=== PATIENT | female | born 1960 | race Caucasian/White ===

== ENCOUNTER → 2024-04-04 10:47 | Outpatient (REF) | payer OTHER, SELFPAY | LOC: RAD 10:47 | PROVIDERS: ATTENDING PHYSICIAN Family Medicine | DX: R05.1 Acute cough (principal) | CPT/HCPCS: 71046 ==

== ENCOUNTER 2024-04-08 15:11 | Inpatient (IN) | payer OTHER, SELFPAY ==
[2024-04-08 12:09] VITALS: BP 147/80
[2024-04-08 12:49] VITALS: BMI 34.7
[2024-04-08 14:05] VITALS: BP 134/73
--- NOTE | 2024-04-08 14:10 | ED.GENMED ---
History of Present Illness
General
Chief Complaint: Pneumonia Symptoms
Time Seen by Provider: 04/08/24 12:18
History of Present Illness
History of Present Illness:
64-year-old female presents emergency department for evaluation of persistent coughing and inability to clear secretions for the past 8 to 9 days. She had a chest x-ray 3 days ago ordered by her primary care physician that showed bilateral
pneumonia. She had been treated initially with Augmentin and prednisone last week and after the chest x-ray findings was started on doxycycline 3 days ago. She reports no symptomatic improvement. Does not have any fevers or chills. Has been
using nebulizers without relief. Prednisone was completed yesterday.
Past History
Past History
ED Past Medical History: Asthma, HTN, Other (Migraine headaches, depression, ADD, hiatal hernia, GERD) and Other (fibroids)
ED Past Surgical History: Other (uerine ablation for fibroids in 2010)
Social History
Tobacco: Non-smoker
Alcohol: None
Drug: None
Personal:
Living: with family
Employment: Not employed
Family History
Family History: Other (n/c)
Review of Systems
Review of Systems
Allergies reviewed?: Yes
All Other Systems: ROS reviewed and negative except as documented in HPI and ROS
Phy Exam
Physical Exam
Physical Exam:
GEN: Well appearing, NAD, WDWN
HEENT: Oral mucosa moist, no scleral icterus
Cardiac: Mildly tachycardic, regular
Lung: No respiratory distress, no tachypnea, lungs clear to auscultation bilaterally
MSK: No gross deformity or injuries
Skin: Good color, no pallor or jaundice, no rashes
Neuro: AO x3, moves all extremities freely
Psych: Calm, cooperative
Course
Orders/Labs/Results
Orders:
Orders
04/08/24 12:48
CR Chest - 2 Views Urgent
Comment:
Reason For Exam: continued cough, known PNA
04/08/24 13:57
CefTRIAXone [Rocephin] 1,000 mg IV NOW STA
Ipratropium/Albuterol Sulfate [Duoneb] 3 ml INH R NOW ONE
04/08/24 14:03
Complete Blood Count/With Diff Urgent
Comprehensive Metabolic Panel Urgent
04/08/24 Dinner
Regular
At Your Request: Full Participation
Does patient need a safe tray?: No
04/08/24 15:02
Admit/Transfer Patient As Directed
Co-Sign Provider:
Level of Care: Inpatient admission
Assign to:: Medical/Surgical
Physician / Group: kyrstal
Diagnosis: pneumonia
Reason for Hospitalization: pneumonia
Expected length of stay greater than two midnights?: Yes
ELOS- Estimated Length of Stay in days: 2
I certify the patient meets the requirements for IP care: Yes
04/08/24 15:03
Code Status As Directed
Resuscitation Status: Full Code
PRN Pain Medication Management As Directed
May give lesser potent ordered pain med per pt: Yes
preference::
Protocol:: Medication orders for pain may be administered in a
manner that supports deferring to patient preference
when the pt is:
- Requesting an ordered lesser potent pain medication.
Least to most potent pain medications are defined
as: acetaminophen < NSAID < tramadol < opioids
(morphine, oxycodone, hydromorphone).
- Requesting a lesser dose of the same medication IF
ORDERED.
- Requesting a less intrusive route of administration
if both routes are prescribed by the provider (PO <
IV).
04/08/24 15:04
Sputum Culture [Respiratory Culture/Gram Stain] Routine
VLADISLAV Source: Sputum
Specimen Description:
04/08/24 15:05
Legionella Urinary Antigen Routine
VLADISLAV Source: Urine
Specimen Description:
Strep pneumoniae Antigen Routine
VLADISLAV Source: Urine
Specimen Description:
04/08/24 15:14
COVID-19 Antigen Urgent
Source: Nasal Swab
Influenza A+B Rapid Molecular Urgent
VLADISLAV Source: Nasal Swab
Specimen Description:
04/08/24 16:46
Acetaminophen [Tylenol] 650 mg PO Q4HPRN PRN
Albuterol Nebs [Ventolin Nebules] 2.5 mg INH R Q6HPRN PRN
Budesonide/Formoterol 80/4.5 [Symbicort 80/4.5 Mcg Inhaler] 1 puff INH R BIDPRN PRN
Polyethylene Glycol Powder [Miralax] 17 grams PO BIDPRN PRN
04/08/24 16:46
Activity As Directed
Activity Level: As Tolerated
Vital Signs As Directed
Frequency: Per unit guidelines
DX Deep Vein Thrombosis Video Routine
04/08/24 18:00
Azithromycin 500 mg/250 ml [Zithromax Infusion] 500 mg in 250 ml IV Q24H
04/08/24 20:00
Guaifenesin [Mucinex] 1,200 mg PO Q12
Heparin 5,000 units SC Q12
04/08/24 22:00
Lisinopril [Zestril] 10 mg PO HS
Pravastatin Sodium [Pravachol] 40 mg PO HS
04/09/24 06:00
Complete Blood Count/With Diff IN AM
Comprehensive Metabolic Panel IN AM
04/09/24 08:00
Cholecalciferol (Vitamin D3) [VITAMIN D3 (cholecalciferol)] 50 mcg PO DAILY
Fluoxetine HCl [Prozac] 40 mg PO DAILY
Lactobac/Bifidobac [Visbiome] 1 cap PO DAILY
Multivitamin [Theragran] 1 tablet PO DAILY
Pantoprazole [Protonix] 40 mg PO DAILY
Venlafaxine Extended Release [Effexor Xr] 150 mg PO DAILY
04/09/24 14:00
CefTRIAXone [Rocephin] 1,000 mg IV Q24H
Abnormal Lab Results
04/08/24
14:03
WBC 18.4 H 10^3/uL
(4.8-10.8)
RBC 4.16 L 10^6/uL
(4.20-5.40)
MCHC 31.4 L g/dL
(33.0-37.0)
Plt Count 505 H 10^3/uL
(130-400)
Abs Immat Gran (auto) 0.9 H 10^3/uL
(0-0.05)
Absolute Neuts (auto) 16.3 H 10^3/uL
(1.4-6.5)
Absolute Lymphs (auto) 0.7 L 10^3/uL
(1.2-3.4)
Immature Gran % 4.7 H %
(0-0.5)
Neutrophils % 88.7 H %
(42.2-75.2)
Lymphocytes % 4.0 L %
(20.5-51.1)
BUN 23 H mg/dl
(7-17)
Glucose 138 H mg/dl
(70-99)
AST 43 H U/L
(14-36)
ALT 73 H U/L
(0-35)
04/08/24 14:03
04/08/24 14:03
Vital Signs
Initial and Last Documented VS:
Initial Vital Signs
Temp Pulse BP Pulse Ox
98.2 F 102 147/80 93
04/08/24 12:09 04/08/24 12:09 04/08/24 12:09 04/08/24 12:09
Last Documented Vital Signs
Temp Pulse Resp BP Pulse Ox
97.8 F 88 18 123/75 93
04/08/24 17:18 04/08/24 17:18 04/08/24 17:18 04/08/24 17:18 04/08/24 17:18
MDM/Problems Addressed
MDM/Problems Addressed:
Patient with failure of outpatient treatment for bilateral pneumonia, she does have significant leukocytosis and evidence of mild progression of infiltrates on chest x-ray. She is also hypoxic particular with exertion. Will admit for IV antibiotics
*Critical Care Note
Total Time (30-74mins, 75-104mins- exclusive of procedures): Not Applicable
ED Attending Note
-
Portions of this chart may have been created with voice recognition software.� Occasional wrong word or��sound alike� substitutions may have occurred due to the inherent limitations of voice recognition software.
Discharge Plan
Departure
Patient Disposition: Admit
Date of Disposition: 04/08/24
Time of Disposition: 14:51
Admit to: Med/Surg
Presentation/result/management discussed w/ accepting MD/DO: Hospitalist
Discharge Problem:
Bilateral pneumonia
Interventions
Interventions:
*Risk Screen - Suicide Last Done: 04/08/24 12:14
*General Assessment Last Done: 04/08/24 12:49
*Neglect/Abuse Screening Last Done: 04/08/24 12:14
ED- Fall Risk Assessment Last Done: 04/08/24 12:49
*ED COVID-19 Vaccine History Last Done: 04/08/24 12:14
*Nursing Disposition Last Done: 04/08/24 16:53
ED- Cardiac Assessment Last Done: 04/08/24 12:49
ED- Pulmonary Assessment Last Done: 04/08/24 12:49
Discharge Date and Time
Discharge Date/Time: 04/08/24 16:54
[2024-04-08] MEDS: DUONEB 3 ML INH (14:11)
[2024-04-08] MEDS: ROCEPHIN 1000 MG IV (14:11)
[2024-04-08 14:19] LABS: % Basophils 0.4 % (0-2); % Eosinophils 0.2 % (0-6); % Immature Granulocytes 4.7 % (0-0.5); % Neutrophils 88.7 % (42.2-75.2); Absolute Basophils 0.1 10^3/uL (0-0.2); Absolute Immature Granulocytes 0.9 10^3/uL (0-0.05); Absolute Lymphocytes 0.7 10^3/uL (1.2-3.4); Absolute Monocytes 0.4 10^3/uL (0.1-0.6); Absolute Neutrophils 16.3 10^3/uL (1.4-6.5); Hematocrit 38.2 % (37.0-47.0); Mean Corp Hgb Conc. 31.4 g/dL (33.0-37.0); Mean Corpuscular Hgb 28.8 pg (27.0-31.0); Mean Corpuscular Volume 91.8 fL (81.0-99.0); Mean Platelet Volume 9.2 fL (7.4-10.4); Nucleated Red Blood Cells % 0 %; Platelet Count 505 10^3/uL (130-400); Red Blood Cell Count 4.16 10^6/uL (4.20-5.40); Red Cell Dist. Width 13.6 % (11.5-14.5); White Blood Cell Count 18.4 10^3/uL (4.8-10.8)
[2024-04-08 14:39] LABS: ALT (SGPT) 73 U/L (0-35); AST (SGOT) 43 U/L (14-36); Albumin 4.1 g/dl (3.5-5.0); Alkaline Phosphatase 98 U/L (38-126); Blood Urea Nitrogen 23 mg/dl (7-17); Calcium 9.8 mg/dl (8.4-10.2); Carbon Dioxide 25 mmol/L (22-30); Chloride 100 mmol/L (98-107); Estimated Creatinine Clearance 91 ml/min; Glucose 138 mg/dl (70-99); Potassium 4.6 mmol/L (3.5-5.1); Sodium 140 mmol/L (135-145); Total Bilirubin 0.2 mg/dl (0.2-1.3); Total Protein 7.1 g/dl (6.3-8.2); eGFR > 60.00
[2024-04-08 15:00] VITALS: BP 123/81
--- NOTE | 2024-04-08 15:06 | HPS.HSE ---
Family Physician
-
Family Physician: Ghada Brown MD
Chief Complaint
-
shortness of breath, cough
History of Present Illness
64-year-old female past medical history of allergy induced asthma, hypertension, migraines, depression, ADD, hiatal hernia, GERD, presenting with persistent cough and inability to clear secretions for the past 8 to 9 days. She had chest x-ray 3
days ago showed bilateral pneumonia. She was initially treated with Augmentin and prednisone last week and after the chest x-ray she was on doxycycline 3 days ago. She reports no improvement. She denies fevers or chills. She has been using
nebulizers without relief. Prednisone was completed yesterday.
She initially had a scratchy throat but denies any fever chills or bodyaches any time. Denies nausea vomiting or diarrhea.
Denies any prior history of smoking. Denies alcohol.
Medical History
Past Medical History
Past Medical History: Reports Other (allergy induced asthma, hypertension, migraines, depression, ADD, hiatal hernia, GERD)
Past Surgical History: Reports None
Social History
Tobacco: Non-smoker
Alcohol: None
Drug: None
Family History
Family History: Not pertinent
Allergies / Home Medications
Allergies reflects when Allergies were last updated in [facility].
Home Medications with original date entered in [facility]
Allergy/Medication List:
Allergies
Allergy/AdvReac Type Severity Reaction Status Date / Time
bee venom protein (honey bee) Allergy Unknown Verified 02/07/22 12:13
fluconazole [From Diflucan] Allergy Unknown Verified 02/07/22 12:13
Home Medications
Bacillus coagulans 250 million cell chewable tablet (Probiotic (B. coagulans)) 1 ea PO DAILY 02/02/18
cholecalciferol (vitamin D3) 50 mcg (2,000 unit) capsule (Vitamin D3) 2,000 unit PO DAILY 02/02/18
fluoxetine 40 mg capsule (Prozac) 40 mg PO BID 02/02/18
lisinopril 10 mg tablet 10 mg PO HS 02/02/18
multivitamin 1 ea PO DAILY 02/02/18
polyethylene glycol 3350 17 gram oral powder packet 17 grams PO BID PRN Reduction Of Transepidermal Water Loss 02/02/18
Protonix 40 mg PO 1XD 04/08/24
Review of Systems
-
History Source: Patient
A 12 point ROS was completed and negative except as noted: Yes
Constitutional: Reports No Symptoms
EENT: Reports No Symptoms
Respiratory: Reports See HPI
Cardiac: Reports No Symptoms
Abdomen/GI: Reports No Symptoms
: Reports No Symptoms
Musculoskeletal: Reports No Symptoms
Skin: Reports No Symptoms
Neurological: Reports No Symptoms
Endocrine: Reports No Symptoms
Hematologic/Lymphatic: Reports No Symptoms
Psych: Reports No Symptoms
Physical Exam
Vital Signs
Vital Signs
Temp Pulse BP Pulse Ox
98.2 F 102 123/81 89
04/08/24 12:09 04/08/24 12:09 04/08/24 15:00 04/08/24 15:00
Physical Exam
General: Well Developed, Well Nourished and No Apparent Distress
HEENT: NormoCephalic, Moist mucous membranes and Atraumatic
Respiratory: Rales (bilaterally, diminished air entry )
Cardiac: S1/S2 and Regular Rhythm; No Murmur or Rub
GI: Soft, Non Tender, Non Distended and Normal Bowel Sounds; No Organomegaly
Rectal: Deferred by Provider
Musculoskeletal: No Clubbing, No Cyanosis and No Edema
Skin: No Rash
Neuro: Nonfocal/grossly intact
Laboratory Results
-
04/08/24 14:03
04/08/24 14:03
Laboratory Results
Total Bilirubin 0.2 mg/dl (0.2-1.3) 04/08/24 14:03
AST 43 U/L (14-36) H 04/08/24 14:03
ALT 73 U/L (0-35) H 04/08/24 14:03
Alkaline Phosphatase 98 U/L (38-126) 04/08/24 14:03
Data Reviewed
-
Lab Data: Labs Reviewed by me
Old Records: Reviewed
Impression/Plan
-
IMPRESSION:
PLAN:
# Sepsis (leukocytosis, tachycardia) mild bilateral pneumonia progressed on the right
-Bilateral crackles, with very diminished air entry bilateral
-Ceftriaxone/azithromycin
-Start Mucinex
-Check sputum culture when able, check strep and Legionella
-Check COVID and influenza
-Doubt she will benefit from further steroids at this time
# Mild transaminitis
-Monitor, outpatient follow-up
History of allergic asthma
Essential hypertension
-Continue lisinopril
Migraines
Anxiety/depression
-Continue fluoxetine
ADD
GERD/hiatal hernia
-Continue Protonix
Full code
DVT prophylaxis�heparin
Regular diet
[2024-04-08 16:00] VITALS: BP 122/71
[2024-04-08 16:14] LABS: COVID-19 Antigen Negative (Negative)
[2024-04-08 17:18] VITALS: BP 123/75; BMI 34.4
[2024-04-08] MEDS: ZITHROMAX INFUSION 250 IV (17:47)
[2024-04-08] MEDS: MUCINEX 1200 MG PO (20:20)
[2024-04-08] MEDS: HEPARIN 5000 UNITS SC (20:20)
[2024-04-08] MEDS: PRAVACHOL 40 MG PO (21:34)
[2024-04-08] MEDS: ZESTRIL 10 MG PO (21:34)
[2024-04-08 23:11] VITALS: BP 129/78
[2024-04-09] MEDS: VENTOLIN NEBULES 2.5 MG INH (02:35)
[2024-04-09 06:20] LABS: ALT (SGPT) 62 U/L (0-35); AST (SGOT) 36 U/L (14-36); Albumin 3.6 g/dl (3.5-5.0); Alkaline Phosphatase 81 U/L (38-126); Blood Urea Nitrogen 19 mg/dl (7-17); Calcium 9.1 mg/dl (8.4-10.2); Carbon Dioxide 28 mmol/L (22-30); Chloride 103 mmol/L (98-107); Estimated Creatinine Clearance 91 ml/min; Glucose 93 mg/dl (70-99); Potassium 4.6 mmol/L (3.5-5.1); Sodium 144 mmol/L (135-145); Total Bilirubin 0.2 mg/dl (0.2-1.3); Total Protein 6.5 g/dl (6.3-8.2); eGFR > 60.00
[2024-04-09 06:36] LABS: Band Neutrophils 4 % (0-3); Lymphocytes 16 % (20-51); Metamyelocytes 2 % (-); Monocytes 5 % (2-9); Myelocytes 1 % (-); Segmented Neutrophils 72 % (42-75)
[2024-04-09 06:37] LABS: Absolute Neutrophils -Man Diff 9.9 10^3/uL (1.4-6.5); Hematocrit 35.8 % (37.0-47.0); Mean Corp Hgb Conc. 30.7 g/dL (33.0-37.0); Mean Corpuscular Hgb 28.6 pg (27.0-31.0); Mean Corpuscular Volume 93.2 fL (81.0-99.0); Mean Platelet Volume 9.3 fL (7.4-10.4); Platelet Count 478 10^3/uL (130-400); Red Blood Cell Count 3.84 10^6/uL (4.20-5.40); Red Cell Dist. Width 13.7 % (11.5-14.5); White Blood Cell Count 13.1 10^3/uL (4.8-10.8)
[2024-04-09 06:39] LABS: Anisocytosis 2+; Normal RBC Morphology No; Platelets Checked Yes
[2024-04-09 06:40] LABS: Macrocytosis 1+; Polychromasia Slight; Total Cells Counted 100
[2024-04-09 08:05] VITALS: BP 127/75
[2024-04-09] MEDS: PROTONIX 40 MG PO (08:07)
--- NOTE | 2024-04-09 08:24 | W.PN.HOSP.TC ---
Today's Communication/Plan
-
c/w IV Abs
Consult pulmonary
Order Nebulizer
F/W pulmonary recommendation
Blood culture
c/w PPI
Spirometry
Assessment / Plan
Assessment / Plan
lPhysical Exam
General: Well Developed, Well Nourished and No Apparent Distress
HEENT: Normocephalic, Moist mucous membranes and Atraumatic
Respiratory: Rales (bilaterally, diminished air entry )
Cardiac: S1/S2 and Regular Rhythm; No Murmur or Rub
GI: Soft, Non Tender, Non Distended and Normal Bowel Sounds; No Organomegaly
Rectal: No rectal bleeding
Musculoskeletal: No Clubbing, No Cyanosis and No Edema
Skin: No Rash
Neuro: Nonfocal/grossly intact
Psych: calm, pleasant
# Sepsis (leukocytosis, tachycardia, hypoxia)due to bilateral pneumonia
-Bilateral crackles R>L , with very diminished air entry bilateral. No wheezes heard
- She is feeling better, still cough and need O2. WBC is coming down, afebrile.
- Negative COVID & Flu
-Sent for Legionella
- Order blood culture
-c/w IV Ceftriaxone/azithromycin
- Mucinex
-Check sputum culture when able, check strep and Legionella
- Consult pulmonary
# Hypoxia only
wean off nasal O2
# Mild transaminitis, reactive to infection.
No abdominal pain, no nausea
Liver enzymes are coming down
# History of allergic asthma
Uses PRN inhaler once or less / month
She seems to have mild intermittent asthma but recently start on maintenance inhaler( she does not know it)
Will benefit from pulmonary follow up, she reports chronic exertional SOB, will need PFT. Consult pulmonary doctor.
Order nebulizer.
#Essential hypertension
-Continue lisinopril
#Migraines
#Anxiety/depression
-Continue fluoxetine
#ADD
Mood is pleasant, calm.
#GERD/hiatal hernia
She feels reflux
-Continue Protonix
Full code
DVT prophylaxis�heparin
Regular diet
Total time spent to see the patient, examine the patient, review data and lab results, discuss treatment plan with patient, nursing staff around 55 minutes
Anticipated Discharge: > 48 hours
Subjective/Interval History
-
Date of Service: April 09, 2024
cough
No chest pain or palpitation
No fevers
Objective Data
-
Labs:
Laboratory Results
04/09/24
04:49
WBC 13.1 H
Hgb 11.0 L
Hct 35.8 L
Plt Count 478 H
Sodium 144
Potassium 4.6
Chloride 103
Carbon Dioxide 28
BUN 19 H
Creatinine 0.7
Glucose 93
Calcium 9.1
Total Bilirubin 0.2
AST 36
ALT 62 H
Alkaline Phosphatase 81
Vital Signs:
Vital Signs
Temp Pulse Resp BP Pulse Ox
98.8 F 78 17 127/75 94
04/09/24 08:05 04/09/24 08:05 04/09/24 08:05 04/09/24 08:05 04/09/24 08:05
I&O
04/08/24 04/09/24 04/10/24
06:59 06:59 06:59
Intake Total 1140 / 1140
Balance 1140 / 1140
[2024-04-09] MEDS: PROZAC 40 MG PO (09:00)
[2024-04-09] MEDS: MUCINEX 1200 MG PO ×2 (09:00→21:00)
[2024-04-09] MEDS: HEPARIN 5000 UNITS SC ×2 (09:01→21:11)
[2024-04-09] MEDS: EFFEXOR XR 150 MG PO (09:01)
[2024-04-09] MEDS: VISBIOME 1 CAP PO (09:01)
[2024-04-09] MEDS: VITAMIN D3 (cholecalciferol) 50 MCG PO (09:01)
[2024-04-09] MEDS: THERAGRAN 1 TABLET PO (09:02)
--- NOTE | 2024-04-09 09:47 | CON.PUL ---
Consultation
Consultation Request
Date/Time Consultation Requested: 04/09/2024639
Date/Time Consultation Performed: 04/09/2024 - 931
Requesting Provider: Dr. Bhatt
Performing Provider: Dr. Sandy
Reason for Consultation: Pneumonia
Medical History
-
Chief Complaint: Cough + shortness of breath
History of Present Illness:
64-year-old female with a past medical history of hypertension, hyperlipidemia, mild persistent asthma on prn Symbicort, vitamin D deficiency, prediabetes and GERD who presents with cough and shortness of breath. She was having shortness of breath
for about 2-3 days and saw her PCP at that time and was started on antibiotics with amoxicillin + doxycycline. Unfortunately her symptoms persisted. She also endorses a dry cough with difficulty bringing up her phlegm. Outpatient CXR done on
04/04/2024 showed a moderate lingula + left lower lobe pneumonia. She was also treated with prednisone. She has been having no fevers or chills and has been using nebulizers at home without relief. She says her symptoms started initially with a
scratchy throat. In the ER she was afebrile to 98.2 �F, pulse rate 102, BP 147/80 and saturating 93% on room air. Initial labs showed leukocytosis to 18.4, Hb 12, platelet count 505, AST is 43, ALT 73 and COVID antigen negative. CXR done showed a
mild pneumonia in the right lung with stable airspace disease in the left lung. In the ER she was given ceftriaxone and DuoNebs and [facility] with pulmonary service consulted for additional management/recommendations.
When I saw the patient she was resting in bed in no acute distress. She is on room air breathing comfortably although still has a dry cough with difficulty bringing up her phlegm. She says she struggles normally with chronic sinus congestion and
uses nasal sprays at home. She currently denies chest pain, HERBERT, abdominal pain, nausea, fevers or chills.
PMHx: Hypertension, hyperlipidemia, depression, seasonal allergic rhinitis, history of mild persistent asthma on prn Symbicort, vitamin D deficiency, prediabetes, GERD
PSHx: , D&C
Past Medical History
Past Medical History: Other (Above as per HPI)
Past Surgical History: Other (Above as per HPI)
Social History
Tobacco: Non-smoker
Alcohol: None
Drug: None
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
Family History
Family History: CAD (Father with history of quadruple bypass and VT in his 40s), Cancer (Maternal aunt: Esophageal cancer), Diabetes (Mother), Hypertension (Father + mother) and Other (Father: History of CHF; mother: Bipolar disorder)
Allergies / Home Medications
Allergies
Allergy/AdvReac Type Severity Reaction Status Date / Time
bee venom protein (honey bee) Allergy Unknown Verified 02/07/22 12:13
fluconazole [From Diflucan] Allergy Unknown Verified 02/07/22 12:13
Home Medications
�Medication �Instructions �Recorded �Confirmed �Last Taken �Type
fluoxetine 40 mg capsule (Prozac) 40 mg PO DAILY 02/02/18 04/08/24 04/08/24 History
lisinopril 10 mg tablet 10 mg PO HS 02/02/18 04/08/24 04/07/24 History
multivitamin 1 ea PO DAILY 02/02/18 04/08/24 04/08/24 History
polyethylene glycol 3350 17 gram 17 grams PO BIDPRN PRN constipation 02/02/18 04/08/24 Unknown History
oral powder packet
Lactobac no.2-Bifidobac no.1-S. 1 cap PO DAILY 04/08/24 04/08/24 04/08/24 History
thermo 112.5 billion cell capsule
(Visbiome)
albuterol sulfate 2.5 mg/3 mL 2.5 mg inhalation R Q6HPRN PRN 04/08/24 04/08/24 Unknown History
(0.083 %) solution for nebulization sob/wheezing
albuterol sulfate 90 mcg/actuation 2 puff inhalation R Q4HPRN PRN 04/08/24 04/08/24 Unknown History
aerosol inhaler sob/wheezing
amoxicillin 875 mg-potassium 1 tab PO BID 04/08/24 04/08/24 04/08/24 History
clavulanate 125 mg tablet
budesonide-formoterol HFA 80 1 puff inhalation R BIDPRN PRN 04/08/24 04/08/24 Unknown History
mcg-4.5 mcg/actuation aerosol sob/wheezing
inhaler
cholecalciferol (vitamin D3) 50 50 mcg PO DAILY 04/08/24 04/08/24 04/08/24 History
mcg (2,000 unit) tablet
doxycycline hyclate 100 mg tablet 100 mg PO BID 04/08/24 04/08/24 04/08/24 History
pantoprazole 40 mg tablet,delayed 40 mg PO DAILY 04/08/24 04/08/24 04/08/24 History
release
pravastatin 40 mg tablet 40 mg PO HS 04/08/24 04/08/24 04/07/24 History
venlafaxine 150 mg 150 mg PO DAILY 04/08/24 04/08/24 04/08/24 History
capsule,extended release 24 hr
Review of Systems
-
History Source: Patient
All other systems: Negative unless noted
Vitals / Labs / Diagnostic Testing
Vital Signs
Temp Pulse Resp BP Pulse Ox
98.8 F 78 17 127/75 94
04/09/24 08:05 04/09/24 08:05 04/09/24 08:05 04/09/24 08:05 04/09/24 08:05
Lab Data
04/09/24 04:49
04/09/24 04:49
Microbiology
04/08/24 15:14 Nasal Swab Influenza Types A & B (ISATU) - Final
Negative for Influenza A & B, NAAT
Negative results must be combined with clinical observations
and patient history.
Nucleic Acid Amplification test (NAAT)performed on the
[employer] platform.
Diagnostic Testing:
Physical Exam
-
HEENT: Normocephalic and Anicteric
Cardiovascular: S1/S2 and Peripheral Edema (negative)
Respiratory: Wheeze (negative), Rales (Right hemithorax), Rhonchi (negative) and Non-Labored Respirations
GI: Soft, Non Distended, Non Tender and Normal Bowel Sounds
Neurology: AO x 3 and Tremors (negative)
Skin: Warm and Dry
General: Respiratory Distress (negative), Comfortable, Fever (negative) and Chills (negative)
Assessment
-
Assessment: 64-year-old female with a past medical history of hypertension, hyperlipidemia, mild persistent asthma on prn Symbicort, vitamin D deficiency, prediabetes and GERD who presents with cough and shortness of breath. She was having
shortness of breath for about 2-3 days and saw her PCP at that time and was started on antibiotics with amoxicillin + doxycycline. Unfortunately her symptoms persisted. She also endorses a dry cough with difficulty bringing up her phlegm.
Outpatient CXR done on 04/04/2024 showed a moderate lingula + left lower lobe pneumonia. She was also treated with prednisone. She has been having no fevers or chills and has been using nebulizers at home without relief. She says her symptoms
started initially with a scratchy throat. In the ER she was afebrile to 98.2 �F, pulse rate 102, BP 147/80 and saturating 93% on room air. Initial labs showed leukocytosis to 18.4, Hb 12, platelet count 505, AST is 43, ALT 73 and COVID antigen
negative. CXR done showed a mild pneumonia in the right lung with stable airspace disease in the left lung. In the ER she was given ceftriaxone and DuoNebs and admitted to [facility] floor with pulmonary service consulted for additional
management/recommendations.
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
Impression:
#Bilateral pneumonia � mild on the right, stable on the left compared to recent CXR from 04/04/2024
#Acute exacerbation of asthma due to above
#Leukocytosis likely due to recent outpatient prednisone course
#Anemia (mild)
#Thrombocytosis � likely reactive due to pneumonia
#Transaminitis (mild)
#History of mild persistent asthma on Symbicort 80mcg BID prn
#Seasonal allergic rhinitis
#Vitamin D deficiency
#GERD
Plan:
- CXR shows mild pneumonia in the right medial lower lobe/RML with stable pneumonia on the left lung
- Continue with ceftriaxone/azithromycin and plan for 7 days antibiotics assuming she continues to clinically improve and remains afebrile for 48 hours prior to stopping antibiotics
- Check sputum culture if she can produce a decent sample
- Check Legionella + strep pneumoniae urine antigens
- Follow up blood Cx (collected 04/09/2024 - NGTD)
- Considering that she is having difficulty bringing up her phlegm and endorsing shortness of breath, temporarily step up her therapy to Symbicort 160mcg standing BID with DuoNebs QID
- Continue prn DuoNebs for breakthrough symptoms
- Given that she failed an outpatient course of prednisone, I will resume OCS and taper more slowly, starting at 40mg daily and reduce by 10mg every 4th day until off
- Start ocean nasal spray QID
- Mucolytics with mucinex 1200mg BID
- Acapella
- Maintain SpO2 >90-94% with supplemental O2 as needed
- Incentive spirometer encouraged 10x per hour for at least 4 hrs a day
- Replete electrolytes with K>4, Mg>2
- Maintain euglycemia with goal BG >100 and <180
- DVT ppx: HSQ
Pulmonary service will continue to follow along. Outpatient office follow-up will be arranged for full PFTs and continued management of her asthma. She will also need repeat imaging with CXR in 4 to 6 weeks to follow-up for pneumonia resolution.
Data:
CXR 04/08/2024: Compared to recent CXR on 04/04/2024
Mild bilateral pneumonia. Progressed on the right. Stable on the left.
Total time spent today was 56 minutes for this encounter. Time includes reviewing laboratory test/imaging results, reviewing pertinent medical records, obtaining and reviewing medical history, performing an appropriate exam, ordering medications,
tests and procedures. Time also includes documentation of this encounter, coordinating patient care and communicating with other healthcare professionals. Total time does not include separately billed tests performed on this date of service.
[2024-04-09] MEDS: VENTOLIN NEBULES 1.25 MG INH ×3 (12:17→19:58)
[2024-04-09] MEDS: ROCEPHIN 1000 MG IV (14:50)
[2024-04-09] MEDS: STERILE WATER FOR INJECTION 10 ML IV (14:50)
[2024-04-09 15:22] VITALS: BP 117/66
--- NOTE | 2024-04-09 16:23 | CM ---
manager of learning reviewed patient's chart and met with patient and patient lives with her spouse in a 2 story home, per patient she has a 1st floor set up, patient is independent with adl's and ambulation, no dme, patient drives, home when stable no
needs.
PCP: Dr. Brown
Pharmacy; [facility]
Plan; Home no needs when stable.
[2024-04-09] MEDS: ZITHROMAX INFUSION 250 IV (18:18)
[2024-04-09] MEDS: OCEAN, SALINE MIST 2 SPRAYS NASAL ×2 (18:18→21:12)
[2024-04-09] MEDS: ZESTRIL 10 MG PO (21:12)
[2024-04-09] MEDS: PRAVACHOL 40 MG PO (21:12)
[2024-04-09 22:43] VITALS: BP 130/71
[2024-04-10 02:45] LABS: Hepatitis C Antibody Negative (Negative)
[2024-04-10 07:45] VITALS: BP 141/77
[2024-04-10] MEDS: SYMBICORT 160/4.5 MCG INHALER 2 PUFF INH ×2 (08:26→20:05)
[2024-04-10] MEDS: DUONEB 3 ML INH ×4 (08:26→20:05)
[2024-04-10 08:44] LABS: Hematocrit 35.9 % (37.0-47.0); Hemoglobin 11.3 g/dL (12.0-16.0); Mean Corp Hgb Conc. 31.5 g/dL (33.0-37.0); Mean Corpuscular Hgb 29.5 pg (27.0-31.0); Mean Corpuscular Volume 93.7 fL (81.0-99.0); Mean Platelet Volume 9.5 fL (7.4-10.4); Platelet Count 483 10^3/uL (130-400); Red Blood Cell Count 3.83 10^6/uL (4.20-5.40); White Blood Cell Count 9.9 10^3/uL (4.8-10.8)
[2024-04-10] MEDS: PROTONIX 40 MG PO (08:45)
[2024-04-10] MEDS: MUCINEX 1200 MG PO ×2 (08:46→20:22)
[2024-04-10] MEDS: VITAMIN D3 (cholecalciferol) 50 MCG PO (08:47)
[2024-04-10] MEDS: DELTASONE 40 MG PO (08:47)
[2024-04-10] MEDS: PROZAC 40 MG PO (08:48)
[2024-04-10] MEDS: VISBIOME 1 CAP PO (08:49)
[2024-04-10] MEDS: EFFEXOR XR 150 MG PO (08:49)
[2024-04-10] MEDS: THERAGRAN 1 TABLET PO (08:49)
[2024-04-10] MEDS: HEPARIN 5000 UNITS SC ×2 (08:50→20:22)
[2024-04-10] MEDS: OCEAN, SALINE MIST 2 SPRAYS NASAL ×4 (08:50→22:12)
[2024-04-10 09:26] LABS: ALT (SGPT) 59 U/L (0-35); AST (SGOT) 32 U/L (14-36); Albumin 3.5 g/dl (3.5-5.0); Alkaline Phosphatase 78 U/L (38-126); Blood Urea Nitrogen 17 mg/dl (7-17); Carbon Dioxide 27 mmol/L (22-30); Chloride 103 mmol/L (98-107); Estimated Creatinine Clearance 91 ml/min; Glucose 99 mg/dl (70-99); Potassium 5.2 mmol/L (3.5-5.1); Sodium 143 mmol/L (135-145); Total Bilirubin 0.2 mg/dl (0.2-1.3); Total Protein 6.3 g/dl (6.3-8.2); eGFR > 60.00
--- NOTE | 2024-04-10 09:27 | W.PN.PUL3 ---
Today's Communication / Plan
-
Slow progress, she is feels she cannot produce sputum for culture
Continue airway clearance measures
Remains on IV abx
CT chest in AM for evaluation
Encouraged OOB/PT/OT
So far culture negative to date
Assessment
-
64-year-old female with a past medical history of hypertension, hyperlipidemia, mild persistent asthma on prn Symbicort, vitamin D deficiency, prediabetes and GERD who presents with cough and shortness of breath. She was having shortness of breath
for about 2-3 days and saw her PCP at that time and was started on antibiotics with amoxicillin + doxycycline. Unfortunately her symptoms persisted. She also endorses a dry cough with difficulty bringing up her phlegm. Outpatient CXR done on
04/04/2024 showed a moderate lingula + left lower lobe pneumonia. She was also treated with prednisone. She has been having no fevers or chills and has been using nebulizers at home without relief. She says her symptoms started initially with a
scratchy throat. In the ER she was afebrile to 98.2 �F, pulse rate 102, BP 147/80 and saturating 93% on room air. Initial labs showed leukocytosis to 18.4, Hb 12, platelet count 505, AST is 43, ALT 73 and COVID antigen negative. CXR done showed a
mild pneumonia in the right lung with stable airspace disease in the left lung. In the ER she was given ceftriaxone and DuoNebs and admitted to [facility] floor with pulmonary service consulted for additional management/recommendations.
Chronic conditions [employer]ER[employer]:Hypertension, hyperlipidemia, depression, seasonal allergic rhinitis, history of mild persistent asthma on prn Symbicort, vitamin D deficiency, prediabetes, GERD
Impression:
#Bilateral pneumonia � mild on the right, stable on the left compared to recent CXR from 04/04/2024
#Acute exacerbation of asthma due to above
#Leukocytosis likely due to recent outpatient prednisone course
#Anemia (mild)
#Thrombocytosis � likely reactive due to pneumonia
#Transaminitis (mild)
#History of mild persistent asthma on Symbicort 80mcg BID prn
#Seasonal allergic rhinitis
#Vitamin D deficiency
#GERD
Plan:
CXR shows mild pneumonia in the right medial lower lobe/RML with stable pneumonia on the left lung
Continue with ceftriaxone/azithromycin and plan for 7 days antibiotics assuming she continues to clinically improve and remains afebrile for 48 hours prior to stopping antibiotics
Check sputum culture if she can produce a decent sample
Airway clearance measures ongoing
Micro reviewed
Legionella + strep pneumoniae urine antigens--neg
Blood Cx (collected 04/09/2024 - NGTD)
Considering that she is having difficulty bringing up her phlegm and endorsing shortness of breath, temporarily step up her therapy to Symbicort 160mcg standing BID with DuoNebs QID
Continue prn DuoNebs for breakthrough symptoms
Given that she failed an outpatient course of prednisone, I will resume OCS and taper more slowly, starting at 40mg daily and reduce by 10mg every 4th day until off
[place] nasal spray QID
Mucolytics with mucinex 1200mg BID
Acapella
CT Chest to evaluate lung parenchyma given slow progress
Lifelong nonsmoker, low risk overall
Maintain SpO2 >90-94% with supplemental O2 as needed
Eventual home O2 eval
Incentive spirometer encouraged 10x per hour for at least 4 hrs a day
Replete electrolytes with K>4, Mg>2
Maintain euglycemia with goal BG >100 and <180
DVT ppx: HSQ
Pulmonary service will continue to follow along.
Outpatient office follow-up will be arranged for full PFTs and continued management of her asthma.
She will also need repeat imaging with CXR in 4 to 6 weeks to follow-up for pneumonia resolution.
Data:
CXR 04/08/2024: Compared to recent CXR on 04/04/2024- Mild bilateral pneumonia. Progressed on the right. Stable on the left.
04/04/24- Moderate lingular and left lower lobe pneumonia
-----
Total time spent today was 51 minutes for this encounter. Time includes reviewing laboratory test/imaging results, reviewing pertinent medical records, obtaining and reviewing medical history, performing an appropriate exam, ordering medications,
tests and procedures. Time also includes documentation of this encounter, coordinating patient care and communicating with other healthcare professionals. Total time does not include separately billed tests performed on this date of service.
Subjective Data
-
Date of Service:
Date of Service: April 10, 2024
Chief Complaint: Pulmonary Follow Up
Subjective:
Patient seen and examined, no acute events ON
Feels like she is not making significant progress
Not productive of mucus much but coughing a lot
Objective Data
Data Reviewed
Vital Signs / I&O / Oxygen:
Vital Signs
Temp Pulse Resp BP Pulse Ox
97.4 F 80 16 141/77 88
04/10/24 07:45 04/10/24 08:26 04/10/24 08:26 04/10/24 07:45 04/10/24 08:26
Intake and Output
04/09/24 04/10/24 04/11/24
06:59 06:59 06:59
Intake Total 1140 / 1140 480 / 480
Balance 1140 / 1140 480 / 480
SaO2 88
Nasal Cannula flow liters per 2
minute
Physical Exam
General: Comfortable and Other (NAD)
HEENT: Normocephalic, Anicteric and Sinus Tenderness
Cardiovascular: S1-S2 and Regular Rhythm
Respiratory: Crackles (R>L) and Non-Labored Respirations
GI: Soft, Non Distended and Non Tender
Neurology: Awake, Alert, Oriented and No Motor Deficits
Skin: Warm, Dry and Good Color
Labs/Micro/Reports
Lab Data
04/10/24 07:46
04/10/24 07:46
Microbiology
04/09/24 08:17 Blood/Venous Blood Culture - Preliminary
No Growth in 24 hours- Final report to follow
04/08/24 15:14 Nasal Swab Influenza Types A & B (ISATU) - Final
Negative for Influenza A & B, NAAT
Negative results must be combined with clinical observations
and patient history.
Nucleic Acid Amplification test (NAAT)performed on the
[employer] platform.
[2024-04-10] MEDS: ROCEPHIN 1000 MG IV (13:41)
[2024-04-10] MEDS: STERILE WATER FOR INJECTION 10 ML IV (13:42)
--- NOTE | 2024-04-10 15:38 | W.PN.HOSP.TC ---
Today's Communication/Plan
-
Assessment / Plan
Assessment / Plan
lPhysical Exam
General: Well Developed, Well Nourished and No Apparent Distress
HEENT: Normocephalic, Moist mucous membranes and Atraumatic
Respiratory: Rales (bilaterally, diminished air entry )
Cardiac: S1/S2 and Regular Rhythm; No Murmur or Rub
GI: Soft, Non Tender, Non Distended and Normal Bowel Sounds; No Organomegaly
Rectal: No rectal bleeding
Musculoskeletal: No Clubbing, No Cyanosis and No Edema
Skin: No Rash
Neuro: Nonfocal/grossly intact
Psych: calm, pleasant
Acute hypoxemic respiratory failure in the setting of multifocal pneumonia and asthma exacerbation
-Acapella
-IV antibiotics
-Steroids
-MDIs
-Wean O2 as tolerated
Sepsis secondary to bilateral pneumonia
-Continue Rocephin and azithromycin x 7 days transition to p.o. if able to discharge
Asthma exacerbation -history of allergic asthma, may require Biologics as outpatient will need pulmonary follow
-Steroids
-Acapella
-MDIs
-PFTs outpatient
-Pulmonary follow-up
-Mucinex
Essential hypertension
-Continue lisinopril
Anxiety/depression
-Continue fluoxetine
ADD
Mood is pleasant, calm.
GERD/hiatal hernia
She feels reflux
-Continue Protonix
Anticipated Discharge: 24 - 48 hours
Subjective/Interval History
-
Date of Service: April 10, 2024
Seen and examined. No new complaints. No acute overnight events.
States that she is feeling better. States her lungs feel like some that but breathing a little bit easier after starting the steroid
Objective Data
-
Labs:
Laboratory Results
04/10/24
07:46
WBC 9.9
Hgb 11.3 L
Hct 35.9 L
Plt Count 483 H
Sodium 143
Potassium 5.2 H
Chloride 103
Carbon Dioxide 27
BUN 17
Creatinine 0.7
Glucose 99
Calcium 9.0
Total Bilirubin 0.2
AST 32
ALT 59 H
Alkaline Phosphatase 78
Vital Signs:
Vital Signs
Temp Pulse Resp BP Pulse Ox
97.4 F 89 18 141/77 92
04/10/24 07:45 04/10/24 11:34 04/10/24 11:34 04/10/24 07:45 04/10/24 11:34
I&O
04/09/24 04/10/24 04/11/24
06:59 06:59 06:59
Intake Total 1140 / 1140 480 / 480
Balance 1140 / 1140 480 / 480
[2024-04-10 15:53] VITALS: BP 123/75
--- NOTE | 2024-04-10 16:40 | CM ---
Chart reviewed home with spouse when stable, no needs.
Plan; Home with spouse when stable, no needs.
--- NOTE | 2024-04-10 17:16 | W.PN.HOSP.TC ---
Today's Communication/Plan
-
Assessment / Plan
Assessment / Plan
Physical Exam
General: Well Developed, Well Nourished and No Apparent Distress
HEENT: Normocephalic, Moist mucous membranes and Atraumatic
Respiratory: Rales (bilaterally, diminished air entry )
Cardiac: S1/S2 and Regular Rhythm; No Murmur or Rub
GI: Soft, Non Tender, Non Distended and Normal Bowel Sounds; No Organomegaly
Musculoskeletal: No Clubbing, No Cyanosis and No Edema
Skin: No Rash
Assessment and Plan
Acute hypoxemic respiratory failure in the setting of multifocal pneumonia and asthma exacerbation, lowest documented o2 sat 88%
-Acapella
-IV antibiotics
-Steroids
-MDIs
-Wean O2 as tolerated
Sepsis secondary to bilateral pneumonia
-Continue Rocephin and azithromycin x 7 days transition to p.o. if able to discharge
Asthma exacerbation -history of allergic asthma, may require Biologics as outpatient will need pulmonary follow
-Steroids
-Acapella
-MDIs
-PFTs outpatient
-Pulmonary follow-up
-Mucinex
Essential hypertension
-Continue lisinopril
Anxiety/depression
-Continue fluoxetine
ADD
Mood is pleasant, calm.
GERD/hiatal hernia
She feels reflux
-Continue Protonix
Anticipated Discharge: > 48 hours
Subjective/Interval History
-
Date of Service: April 10, 2024
Objective Data
-
Labs:
Laboratory Results
04/10/24
07:46
WBC 9.9
Hgb 11.3 L
Hct 35.9 L
Plt Count 483 H
Sodium 143
Potassium 5.2 H
Chloride 103
Carbon Dioxide 27
BUN 17
Creatinine 0.7
Glucose 99
Calcium 9.0
Total Bilirubin 0.2
AST 32
ALT 59 H
Alkaline Phosphatase 78
Vital Signs:
Vital Signs
Temp Pulse Resp BP Pulse Ox
97.5 F 96 18 123/75 95
04/10/24 15:53 04/10/24 15:53 04/10/24 15:53 04/10/24 15:53 04/10/24 15:53
I&O
04/09/24 04/10/24 04/11/24
06:59 06:59 06:59
Intake Total 1140 / 1140 480 / 480
Balance 1140 / 1140 480 / 480
[2024-04-10] MEDS: ZITHROMAX INFUSION 250 IV (17:26)
[2024-04-10] MEDS: PRAVACHOL 40 MG PO (22:12)
[2024-04-10] MEDS: ZESTRIL 10 MG PO (22:16)
[2024-04-10 22:30] VITALS: BP 162/82
[2024-04-11 06:26] LABS: Hematocrit 35.7 % (37.0-47.0); Hemoglobin 11.2 g/dL (12.0-16.0); Mean Corp Hgb Conc. 31.4 g/dL (33.0-37.0); Mean Corpuscular Hgb 29.2 pg (27.0-31.0); Mean Platelet Volume 9.2 fL (7.4-10.4); Platelet Count 482 10^3/uL (130-400); Red Blood Cell Count 3.84 10^6/uL (4.20-5.40); White Blood Cell Count 14.3 10^3/uL (4.8-10.8)
[2024-04-11 06:46] LABS: Blood Urea Nitrogen 16 mg/dl (7-17); Calcium 9.5 mg/dl (8.4-10.2); Carbon Dioxide 28 mmol/L (22-30); Chloride 102 mmol/L (98-107); Estimated Creatinine Clearance 91 ml/min; Glucose 94 mg/dl (70-99); Potassium 5.4 mmol/L (3.5-5.1); Sodium 144 mmol/L (135-145); eGFR > 60.00
[2024-04-11] MEDS: DUONEB 3 ML INH ×4 (07:05→20:22)
[2024-04-11] MEDS: SYMBICORT 160/4.5 MCG INHALER 2 PUFF INH ×2 (07:05→20:22)
[2024-04-11 07:55] VITALS: BP 136/91
[2024-04-11] MEDS: DELTASONE 40 MG PO (08:39)
[2024-04-11] MEDS: EFFEXOR XR 150 MG PO (08:39)
[2024-04-11] MEDS: HEPARIN 5000 UNITS SC ×2 (08:39→21:01)
[2024-04-11] MEDS: PROZAC 40 MG PO (08:40)
[2024-04-11] MEDS: MUCINEX 1200 MG PO ×2 (08:40→21:01)
[2024-04-11] MEDS: PROTONIX 40 MG PO (08:40)
[2024-04-11] MEDS: VISBIOME 1 CAP PO (08:41)
[2024-04-11] MEDS: THERAGRAN 1 TABLET PO (08:41)
[2024-04-11] MEDS: OCEAN, SALINE MIST 2 SPRAYS NASAL ×4 (08:41→21:01)
[2024-04-11] MEDS: VITAMIN D3 (cholecalciferol) 50 MCG PO (08:41)
--- NOTE | 2024-04-11 09:18 | W.PN.PUL3 ---
Today's Communication / Plan
-
Doing well today, off oxygen, symptoms are improving
CT reviewed, showing improving PNA, would need OP FU in 6 weeks/repeat imaging
Can likely de-escalate and transition abx to PO course
Encouraged ambulation, OOB
Airway clearance ongoing/encouraged
Discharge planning per team
Assessment
-
64-year-old female with a past medical history of hypertension, hyperlipidemia, mild persistent asthma on prn Symbicort, vitamin D deficiency, prediabetes and GERD who presents with cough and shortness of breath. She was having shortness of breath
for about 2-3 days and saw her PCP at that time and was started on antibiotics with amoxicillin + doxycycline. Unfortunately her symptoms persisted. She also endorses a dry cough with difficulty bringing up her phlegm. Outpatient CXR done on
04/04/2024 showed a moderate lingula + left lower lobe pneumonia. She was also treated with prednisone. She has been having no fevers or chills and has been using nebulizers at home without relief. She says her symptoms started initially with a
scratchy throat. In the ER she was afebrile to 98.2 �F, pulse rate 102, BP 147/80 and saturating 93% on room air. Initial labs showed leukocytosis to 18.4, Hb 12, platelet count 505, AST is 43, ALT 73 and COVID antigen negative. CXR done showed a
mild pneumonia in the right lung with stable airspace disease in the left lung. In the ER she was given ceftriaxone and DuoNebs and admitted to [facility] floor with pulmonary service consulted for additional management/recommendations.
Chronic conditions [employer]:Hypertension, hyperlipidemia, depression, seasonal allergic rhinitis, history of mild persistent asthma on prn Symbicort, vitamin D deficiency, prediabetes, GERD
Impression:
#Bilateral pneumonia � mild on the right, stable on the left compared to recent CXR from 04/04/2024
#Acute exacerbation of asthma due to above
#Leukocytosis likely due to recent outpatient prednisone course
#Anemia (mild)
#Thrombocytosis � likely reactive due to pneumonia
#Transaminitis (mild)
#History of mild persistent asthma on Symbicort 80mcg BID prn
#Seasonal allergic rhinitis
#Vitamin D deficiency
#GERD
Plan:
CXR shows mild pneumonia in the right medial lower lobe/RML with stable pneumonia on the left lung
Continue with ceftriaxone/azithromycin and plan for 7 days antibiotics assuming she continues to clinically improve and remains afebrile for 48 hours prior to stopping antibiotics
Check sputum culture if she can produce a decent sample
Airway clearance measures ongoing
Micro reviewed
Legionella + strep pneumoniae urine antigens--neg
Blood Cx (collected 04/09/2024 - NGTD)
Considering that she is having difficulty bringing up her phlegm and endorsing shortness of breath, temporarily step up her therapy to Symbicort 160mcg standing BID with DuoNebs QID
Continue prn DuoNebs for breakthrough symptoms
Given that she failed an outpatient course of prednisone, I will resume OCS and taper more slowly, starting at 40mg daily and reduce by 10mg every 4th day until off
[place] nasal spray QID
Mucolytics with mucinex 1200mg BID
Acapella
CT Chest to evaluate lung parenchyma given slow progress
Lifelong nonsmoker, low risk overall
CT showing PNA, improving
Maintain SpO2 >90-94% with supplemental O2 as needed
Eventual home O2 eval
Incentive spirometer encouraged 10x per hour for at least 4 hrs a day
Replete electrolytes with K>4, Mg>2
Maintain euglycemia with goal BG >100 and <180
DVT ppx: HSQ
Pulmonary service will continue to follow along.
Outpatient office follow-up will be arranged for full PFTs and continued management of her asthma.
She will also need repeat imaging with CXR in 4 to 6 weeks to follow-up for pneumonia resolution.
Data:
CXR 04/08/2024: Compared to recent CXR on 04/04/2024- Mild bilateral pneumonia. Progressed on the right. Stable on the left.
04/04/24- Moderate lingular and left lower lobe pneumonia
-----
Total time spent today was 51 minutes for this encounter. Time includes reviewing laboratory test/imaging results, reviewing pertinent medical records, obtaining and reviewing medical history, performing an appropriate exam, ordering medications,
tests and procedures. Time also includes documentation of this encounter, coordinating patient care and communicating with other healthcare professionals. Total time does not include separately billed tests performed on this date of service.
Subjective Data
-
Date of Service:
Date of Service: April 11, 2024
Chief Complaint: Pulmonary Follow Up
Subjective:
Doing well today, remains stable on RA
No new complaints
Coughing more
Objective Data
Data Reviewed
Vital Signs / I&O / Oxygen:
Vital Signs
Temp Pulse Resp BP Pulse Ox
98.0 F 105 20 136/91 92
04/11/24 07:55 04/11/24 07:55 04/11/24 07:55 04/11/24 07:55 04/11/24 07:55
Intake and Output
04/10/24 04/11/24 04/12/24
06:59 06:59 06:59
Intake Total 480 / 480 1860 / 1860
Output Total 450 / 450
Balance 480 / 480 1410 / 1410
SaO2 92
Nasal Cannula flow liters per 2
minute
Physical Exam
General: Comfortable and Other (NAD)
HEENT: Normocephalic, Anicteric and Sinus Tenderness
Cardiovascular: S1-S2 and Regular Rhythm
Respiratory: Clear and Non-Labored Respirations
GI: Soft, Non Distended and Non Tender
Neurology: Awake, Alert, Oriented and No Motor Deficits
Skin: Warm, Dry and Good Color
Labs/Micro/Reports
Lab Data
04/11/24 05:52
04/11/24 05:52
Microbiology
04/09/24 08:17 Blood/Venous Blood Culture - Preliminary
No Growth in 48 hours- Final report to follow
04/10/24 09:27 Urine Legionella Urinary Antigen - Final
Negative for Legionella pneumophila Serogroup 1 antigen.
A negative result does not rule out the possiblity of
Legionella infection due to other serogroups or species of
Legionella. Clinical correlation is recommended.
04/10/24 09:27 Urine Streptococcus pneumoniae Antigen (M - Final
Negative for Streptococcus pneumoniae antigen.
A negative result does not exclude infection with
Streptococcus pneumoniae. Clinical correlation is
recommended.
04/08/24 15:14 Nasal Swab Influenza Types A & B (ISATU) - Final
Negative for Influenza A & B, NAAT
Negative results must be combined with clinical observations
and patient history.
Nucleic Acid Amplification test (NAAT)performed on the
[employer] platform.
--- NOTE | 2024-04-11 10:16 | CM ---
Patient seen bedside.
Continues on IV anbx.
Patient denies home care needs.
Patient aware of CM availability should needs arise.
Plan: home no needs.
[2024-04-11] MEDS: ZITHROMAX 500 MG PO (12:20)
[2024-04-11] MEDS: ROCEPHIN 1000 MG IV (13:02)
[2024-04-11] MEDS: STERILE WATER FOR INJECTION 10 ML IV (13:02)
--- NOTE | 2024-04-11 13:24 | PTCARENOTE ---
Ambulated with patient on RA and POX was 88-90%. Pt was slightly SOB and huffing and puffing a bit. Dr. Edouard Sanches aware.
--- NOTE | 2024-04-11 13:56 | W.PN.HOSP.TC ---
Today's Communication/Plan
-
Continue steroids
Continue antibiotics
At this time not ready for discharge as still symptomatic with ambulation and hypoxic on ambulation.
Assessment / Plan
Assessment / Plan
Physical Exam
General: Well Developed, Well Nourished and No Apparent Distress
HEENT: Normocephalic, Moist mucous membranes and Atraumatic
Respiratory: Rales (bilaterally, diminished air entry )
Cardiac: S1/S2 and Regular Rhythm; No Murmur or Rub
GI: Soft, Non Tender, Non Distended and Normal Bowel Sounds; No Organomegaly
Musculoskeletal: No Clubbing, No Cyanosis and No Edema
Skin: No Rash
Assessment and Plan
Acute hypoxemic respiratory failure in the setting of multifocal pneumonia and asthma exacerbation, lowest documented o2 sat 88%
-Acapella
-IV antibiotics
-Steroids
-MDIs
-Wean O2 as tolerated
Sepsis secondary to bilateral pneumonia
-Continue Rocephin and azithromycin x 7 days transition to p.o. if able to discharge
Asthma exacerbation -history of allergic asthma, may require Biologics as outpatient will need pulmonary follow
-Steroids
-Acapella
-MDIs
-PFTs outpatient
-Pulmonary follow-up
-Mucinex
Essential hypertension
-Continue lisinopril
Anxiety/depression
-Continue fluoxetine
ADD
Mood is pleasant, calm.
GERD/hiatal hernia
She feels reflux
-Continue Protonix
Once maintaining SpO2 greater than 90% with ambulation and without shortness of breath/symptoms they can plan to discharge home
Anticipated Discharge: 24 - 48 hours
Subjective/Interval History
-
Date of Service: April 11, 2024
Seen and examined. No new complaints. No acute overnight events.
Using 2 L nasal cannula. States to get ready to therefore thought she would use some additional oxygen
I personally asked bedside nursing staff Young to ambulate her in the hallways. Was noted 88% with symptomatic shortness of breath
Objective Data
-
Labs:
Laboratory Results
04/11/24
05:52
WBC 14.3 H
Hgb 11.2 L
Hct 35.7 L
Plt Count 482 H
Sodium 144
Potassium 5.4 H
Chloride 102
Carbon Dioxide 28
BUN 16
Creatinine 0.7
Glucose 94
Calcium 9.5
Vital Signs:
Vital Signs
Temp Pulse Resp BP Pulse Ox
98.0 F 91 16 136/91 90
04/11/24 07:55 04/11/24 11:49 04/11/24 11:49 04/11/24 07:55 04/11/24 11:49
I&O
04/10/24 04/11/24 04/12/24
06:59 06:59 06:59
Intake Total 480 / 480 1860 / 1860
Output Total 450 / 450
Balance 480 / 480 1410 / 1410
[2024-04-11 15:45] VITALS: BP 153/73
--- NOTE | 2024-04-11 21:00 | PTCARENOTE ---
Pt ambulated the halls. Pulse Ox 84-86%. pt RENEE but stated she felt fine.
[2024-04-11] MEDS: PRAVACHOL 40 MG PO (21:03)
[2024-04-11 22:01] VITALS: O2SAT 86
[2024-04-11 22:54] VITALS: BP 140/73
[2024-04-12 07:22] VITALS: BP 153/83
[2024-04-12] MEDS: SYMBICORT 160/4.5 MCG INHALER 2 PUFF INH (07:40)
[2024-04-12] MEDS: DUONEB 3 ML INH ×2 (07:40→11:43)
[2024-04-12 07:55] LABS: Hematocrit 34.9 % (37.0-47.0); Hemoglobin 10.8 g/dL (12.0-16.0); Mean Corp Hgb Conc. 30.9 g/dL (33.0-37.0); Mean Corpuscular Hgb 28.9 pg (27.0-31.0); Mean Corpuscular Volume 93.3 fL (81.0-99.0); Mean Platelet Volume 9.4 fL (7.4-10.4); Platelet Count 492 10^3/uL (130-400); Red Blood Cell Count 3.74 10^6/uL (4.20-5.40); Red Cell Dist. Width 14.3 % (11.5-14.5); White Blood Cell Count 12.4 10^3/uL (4.8-10.8)
[2024-04-12] MEDS: VITAMIN D3 (cholecalciferol) 50 MCG PO (08:31)
[2024-04-12] MEDS: VISBIOME 1 CAP PO (08:31)
[2024-04-12] MEDS: MUCINEX 1200 MG PO (08:32)
[2024-04-12] MEDS: PROZAC 40 MG PO (08:32)
[2024-04-12] MEDS: EFFEXOR XR 150 MG PO (08:33)
[2024-04-12] MEDS: THERAGRAN 1 TABLET PO (08:33)
[2024-04-12] MEDS: DELTASONE 40 MG PO (08:33)
[2024-04-12] MEDS: PROTONIX 40 MG PO (08:33)
[2024-04-12] MEDS: ZITHROMAX 500 MG PO (08:34)
[2024-04-12] MEDS: HEPARIN 5000 UNITS SC (08:35)
[2024-04-12] MEDS: OCEAN, SALINE MIST 2 SPRAYS NASAL ×2 (08:46→13:17)
[2024-04-12 09:36] LABS: Blood Urea Nitrogen 18 mg/dl (7-17); Calcium 9.2 mg/dl (8.4-10.2); Carbon Dioxide 25 mmol/L (22-30); Chloride 103 mmol/L (98-107); Estimated Creatinine Clearance 91 ml/min; Glucose 87 mg/dl (70-99); Sodium 142 mmol/L (135-145); eGFR > 60.00
--- NOTE | 2024-04-12 09:42 | W.PN.PUL3 ---
Today's Communication / Plan
-
Doing well today, home O2 assessment does not show need for O2 at home
Continue breathing exercises/IS, acapella/airway clearance
Transition PO abx for complete course
Encourage OOB/ambulation
Discharge planning today
OP Pulm FU recommended
We will sign off at this time, pls call with questions
Assessment
-
64-year-old female with a past medical history of hypertension, hyperlipidemia, mild persistent asthma on prn Symbicort, vitamin D deficiency, prediabetes and GERD who presents with cough and shortness of breath. She was having shortness of breath
for about 2-3 days and saw her PCP at that time and was started on antibiotics with amoxicillin + doxycycline. Unfortunately her symptoms persisted. She also endorses a dry cough with difficulty bringing up her phlegm. Outpatient CXR done on
04/04/2024 showed a moderate lingula + left lower lobe pneumonia. She was also treated with prednisone. She has been having no fevers or chills and has been using nebulizers at home without relief. She says her symptoms started initially with a
scratchy throat. In the ER she was afebrile to 98.2 �F, pulse rate 102, BP 147/80 and saturating 93% on room air. Initial labs showed leukocytosis to 18.4, Hb 12, platelet count 505, AST is 43, ALT 73 and COVID antigen negative. CXR done showed a
mild pneumonia in the right lung with stable airspace disease in the left lung. In the ER she was given ceftriaxone and DuoNebs and admitted to MedSurg floor with pulmonary service consulted for additional management/recommendations.
Chronic conditions [employer]:Hypertension, hyperlipidemia, depression, seasonal allergic rhinitis, history of mild persistent asthma on prn Symbicort, vitamin D deficiency, prediabetes, GERD
Impression:
#Bilateral pneumonia � mild on the right, stable on the left compared to recent CXR from 04/04/2024
#Acute exacerbation of asthma due to above
#Leukocytosis likely due to recent outpatient prednisone course
#Anemia (mild)
#Thrombocytosis � likely reactive due to pneumonia
#Transaminitis (mild)
#History of mild persistent asthma on Symbicort 80mcg BID prn
#Seasonal allergic rhinitis
#Vitamin D deficiency
#GERD
Plan:
CXR shows mild pneumonia in the right medial lower lobe/RML with stable pneumonia on the left lung
Continue with ceftriaxone/azithromycin and plan for 7 days antibiotics assuming she continues to clinically improve and remains afebrile for 48 hours prior to stopping antibiotics
Check sputum culture if she can produce a decent sample
Airway clearance measures ongoing
Micro reviewed
Legionella + strep pneumoniae urine antigens--neg
Blood Cx (collected 04/09/2024 - NGTD)
Considering that she is having difficulty bringing up her phlegm and endorsing shortness of breath, temporarily step up her therapy to Symbicort 160mcg standing BID with DuoNebs QID
Continue prn DuoNebs for breakthrough symptoms
Given that she failed an outpatient course of prednisone, I will resume OCS and taper more slowly, starting at 40mg daily and reduce by 10mg every 4th day until off
[place] nasal spray QID
Mucolytics with mucinex 1200mg BID
Acapella
IS today as well
CT Chest to evaluate lung parenchyma given slow progress
Lifelong nonsmoker, low risk overall
CT showing PNA, improving
Maintain SpO2 >90-94% with supplemental O2 as needed
Eventual home O2 eval
Incentive spirometer encouraged 10x per hour for at least 4 hrs a day
Replete electrolytes with K>4, Mg>2
Maintain euglycemia with goal BG >100 and <180
DVT ppx: HSQ
Pulmonary service will continue to follow along.
Outpatient office follow-up will be arranged for full PFTs and continued management of her asthma.
She will also need repeat imaging with CXR in 4 to 6 weeks to follow-up for pneumonia resolution.
Data:
CXR 04/08/2024: Compared to recent CXR on 04/04/2024- Mild bilateral pneumonia. Progressed on the right. Stable on the left.
04/04/24- Moderate lingular and left lower lobe pneumonia
-----
Total time spent today was 36 minutes for this encounter. Time includes reviewing laboratory test/imaging results, reviewing pertinent medical records, obtaining and reviewing medical history, performing an appropriate exam, ordering medications,
tests and procedures. Time also includes documentation of this encounter, coordinating patient care and communicating with other healthcare professionals. Total time does not include separately billed tests performed on this date of service.
Subjective Data
-
Date of Service:
Date of Service: April 12, 2024
Chief Complaint: Pulmonary Follow Up
Subjective:
Doing well today, no new complaints
Stable on RA, ambulating without desaturation
Objective Data
Data Reviewed
Vital Signs / I&O / Oxygen:
Vital Signs
Temp Pulse Resp BP Pulse Ox
97.3 F 78 16 153/83 92
04/12/24 07:22 04/12/24 07:41 04/12/24 07:41 04/12/24 07:22 04/12/24 07:41
Intake and Output
04/11/24 04/12/24 04/13/24
06:59 06:59 06:59
Intake Total 1860 / 1860 840 / 840
Output Total 450 / 450
Balance 1410 / 1410 840 / 840
SaO2 92
Nasal Cannula flow liters per 1.5
minute
Physical Exam
General: Comfortable and Other (NAD)
HEENT: Normocephalic, Anicteric and Sinus Tenderness
Cardiovascular: S1-S2 and Regular Rhythm
Respiratory: Clear and Non-Labored Respirations
GI: Soft, Non Distended and Non Tender
Neurology: Awake, Alert, Oriented and No Motor Deficits
Skin: Warm, Dry and Good Color
Labs/Micro/Reports
Lab Data
04/12/24 06:20
04/12/24 06:20
Microbiology
04/09/24 08:17 Blood/Venous Blood Culture - Preliminary
No Growth in 72 hours- Final report to follow
04/10/24 09:27 Urine Legionella Urinary Antigen - Final
Negative for Legionella pneumophila Serogroup 1 antigen.
A negative result does not rule out the possiblity of
Legionella infection due to other serogroups or species of
Legionella. Clinical correlation is recommended.
04/10/24 09:27 Urine Streptococcus pneumoniae Antigen (M - Final
Negative for Streptococcus pneumoniae antigen.
A negative result does not exclude infection with
Streptococcus pneumoniae. Clinical correlation is
recommended.
--- NOTE | 2024-04-12 10:01 | RESPNOTE ---
Respiratory: SpO2 92% at rest HR 88. Patient walked 300 feet SpO2 90% HR 112. Patient states no SOB/RENEE.
[2024-04-12] MEDS: LOKELMA 10 GRAM PO (11:23)
[2024-04-12] MEDS: ORETIC 12.5 MG PO (11:23)
--- NOTE | 2024-04-12 12:06 | CM ---
Chart reviewed and plan is to home today no needs.
Plan; Home no needs.
--- NOTE | 2024-04-12 12:08 | W.PN.HOSP.TC ---
Addendum entered and electronically signed by Eliceo Sanches MD 04/12/24 12:47:
More than 30 minutes spent in discharge including
Final examination of the patient
Summarizing hospital stay
Instructions for continuing care to all relevant caregivers
Preparation of discharge records, prescriptions, and referral forms
Total time spent (in minutes): 36mins
Original Note:
Today's Communication/Plan
-
DC home
Warm handoff provided to Dr. Brown via TT
Assessment / Plan
Assessment / Plan
Physical Exam
General: Well Developed, Well Nourished and No Apparent Distress
HEENT: Normocephalic, Moist mucous membranes and Atraumatic
Respiratory: RLL crackles that improved after cracking, good air movement throughout
Cardiac: S1/S2 and Regular Rhythm; No Murmur or Rub
GI: Soft, Non Tender, Non Distended and Normal Bowel Sounds; No Organomegaly
Musculoskeletal: No Clubbing, No Cyanosis and No Edema
Skin: No Rash
Assessment and Plan
Acute hypoxemic respiratory failure in the setting of multifocal pneumonia and asthma exacerbation, lowest documented o2 sat 88%
-Acapella
-IV antibiotics, transiton to PO to completed 7days
-Steroids, taper ordered for discharge
-MDIs home with step up therapy with symbicort
-Off o2, comfortable, ambulatory pulse ox of 90%
Sepsis secondary to bilateral pneumonia
-Continue Rocephin and azithromycin x 7 days transition to p.o. if able to discharge
Asthma exacerbation -history of allergic asthma, may require Biologics as outpatient will need pulmonary follow
-Steroids, 16day taper
-Acapella
-MDIs- 2week step up therapy with symbicort
-PFTs outpatient
-Pulmonary follow-up
-Mucinex x5days
Essential hypertension
-Stop lisinopril due to hyperK
-Started on hctz daily
-Informed her to keep a bp log and take it to her next pcp appointment to adjust antihypertensives
Anxiety/depression
-Continue fluoxetine
ADD
Mood is pleasant, calm.
GERD/hiatal hernia
She feels reflux
-Continue Protonix
DC home
Anticipated Discharge: Today
Subjective/Interval History
-
Date of Service: April 12, 2024
Seen and examined. No new complaints. No acute overnight events.
Last night had a ambulatory pulse ox of 86%. This was repeated this morning and noted per nursing and respiratory therapist of a amatory pulse ox of 90%. Without symptoms. Without tachypnea.
Objective Data
-
Labs:
Laboratory Results
04/12/24
06:20
WBC 12.4 H
Hgb 10.8 L
Hct 34.9 L
Plt Count 492 H
Sodium 142
Potassium 5.0
Chloride 103
Carbon Dioxide 25
BUN 18 H
Creatinine 0.7
Glucose 87
Calcium 9.2
Vital Signs:
Vital Signs
Temp Pulse Resp BP Pulse Ox
97.3 F 84 16 153/83 99
04/12/24 07:22 04/12/24 11:45 04/12/24 11:45 04/12/24 07:22 04/12/24 08:00
I&O
04/11/24 04/12/24 04/13/24
06:59 06:59 06:59
Intake Total 1860 / 1860 840 / 840
Output Total 450 / 450
Balance 1410 / 1410 840 / 840
--- NOTE | 2024-04-12 12:14 | W.DCSUMMARY ---
Discharge Summary
Discharge Data
Date of Admission: 04/08/24
Date of Discharge: 04/12/24
-
Pending Results: No
Hospital Course
64 female history of allergy induced asthma, hypertension, migraines, depression, ADD, hiatal hernia, GERD presented with cough inability to clear secretions for 8 to 9 days. Up demonstrated bilateral pneumonia started on Augmentin steroids without
improvement therefore Augmentin changed to doxycycline and. Symptoms did not improve with doxycycline prednisone presented to the hospital. Was started on IV antibiotics with Rocephin and azithromycin, steroids and step up dose of Symbicort.
Evaluated by pulmonary and recommended outpatient PFTs follow-up and to complete 7 days of antibiotics along with slow 16-day taper of steroids. She did require oxygen was able to wean off. Previous day prior to discharge noted to have a
ambulatory pulse ox of 88% and 86% 2 different times throughout the day and was symptomatic. Therefore it discharge was held. Following day which was a day of discharge noted to have a amatory pulse ox of 90% and was asymptomatic at this time.
Additionally, developed hyperkalemia, lisinopril stopped started on low K diet. As lisinopril was and was taking this for high blood pressure was started on hydrochlorothiazide. Repeat BMP in 5 days.
Warm handout was provided to outpatient PCP via [employer].
Discharge Plan
-
Patient Disposition: Home (Routine Discharge)
Discharge Diagnosis/Procedures: Acute Hypoxic respiratory failure
Multifocal pneumonia
Asthma Exacterbation
Diet: As tolerated
Additional Diets: low potassium diet
Activity: As tolerated
Activity Restrictions/Additional Instructions:
Outpatietn CBC and BMP in 5days with your PCP. Please call PCP for script
Referrals:
Fahad Sandy MD [Active] - in two to four weeks (full PFTs on day of office visit)
Ghada Brown MD [Family Provider] -
Additional Discharge Medication Instructions: Stop
Lisinopril due to high potassium level
augmentin and doxycycline
Start
Prednisone taper
Day1-4: 10mg x4tabs =40mg
D5-9: 10mg x3t =30mg
D10-13: 10mg x2t =20mg
D14-17: 10mg x1t =10mg
Complete antibiotics
Azithromycin
Cefpodoxime (Vantin)
Step up therapy with symbicort 2puffs twice a day for 2weeks then return to lower dose as needed
Started on
Hydrochlorothiazide 12.5mg daily for blood pressure control as lisinopril was stopped
Prescriptions:
New
guaifenesin 600 mg Tablet Extended Release 12hr
1,200 mg PO Q12 5 Days Qty: 20 0RF
azithromycin 250 mg Tablet
500 mg PO DAILY 4 Days Qty: 8 0RF
Saline Nasal 0.65 % Aerosol,[place]
2 sprays intranasal QID 5 Days Qty: 1 0RF
hydrochlorothiazide 12.5 mg Tablet
12.5 mg PO DAILY 30 Days Qty: 30 0RF
cefpodoxime 200 mg tablet
200 mg PO BID 4 Days Qty: 8 0RF
pantoprazole 40 mg Tablet,Delayed Release (Dr/Ec)
40 mg PO 1XD 30 Days Qty: 30 0RF
prednisone 10 mg tablet
10 mg PO DIRECTED Qty: 40 0RF
Rx Instructions:
Day1-4: 10mg x4tabs =40mg
D5-9: 10mg x3t =30mg
D10-13: 10mg x2t =20mg
D14-17: 10mg x1t =10mg
budesonide-formoterol [Symbicort] 160-4.5 mcg/actuation HFA aerosol inhaler
2 puff inhalation BID Qty: 10.2 0RF
Continued
multivitamin 1 EACH tablet
1 ea PO DAILY
fluoxetine [Prozac] 40 MG capsule
40 mg PO DAILY
polyethylene glycol 3350 17 GRAMS powder in packet
17 grams PO BIDPRN PRN (Reason: constipation)
pantoprazole 40 mg Tablet,Delayed Release (Dr/Ec)
40 mg PO DAILY
albuterol sulfate 2.5 mg /3 mL (0.083 %) solution for nebulization
2.5 mg inhalation R Q6HPRN PRN (Reason: sob/wheezing)
pravastatin 40 mg tablet
40 mg PO HS
venlafaxine 150 mg capsule,extended release 24hr
150 mg PO DAILY
albuterol sulfate 90 mcg/actuation HFA aerosol inhaler
2 puff INHALATION R Q4HPRN PRN (Reason: sob/wheezing)
Visbiome 112.5 billion cell Capsule
1 cap PO DAILY
budesonide-formoterol 80-4.5 mcg/actuation HFA aerosol inhaler
1 puff INHALATION R BIDPRN PRN (Reason: sob/wheezing)
cholecalciferol (vitamin D3) 50 mcg (2,000 unit) Tablet
50 mcg PO DAILY
Mag Glycinate 240 mg capsule
480 mg PO 1XD PRN (Reason: Reduce inflammation before bed)
Discontinued
lisinopril 10 MG tablet
10 mg PO HS
doxycycline hyclate 100 mg tablet
100 mg PO BID
amoxicillin-pot clavulanate 875-125 mg tablet
1 tab PO BID
Discharge Orders:
Discharge Patient (As Directed); Ordered 04/12/24
Ordered By: Eliceo Sanches
Discharge Date and Time
Print Language: IRISH
[2024-04-12] MEDS: STERILE WATER FOR INJECTION 10 ML IV (13:15)
[2024-04-12] MEDS: ROCEPHIN 1000 MG IV (13:16)
== END 2024-04-12 15:03 | disposition home or self-care (01) | DRG 871 ==
LOC: 4 WEST ACU 15:11
PROVIDERS: Internal Medicine; Physician Assistant; ADMITTING PHYSICIAN Hospitalist; ATTENDING PHYSICIAN Hospitalist; CONSULT PHYSICIAN Internal Medicine Critical Care Medicine; EMERGENCY PHYSICIAN Emergency Medicine; FAMILY PHYSICIAN Family Medicine
DX: A41.9 Sepsis, unspecified organism (principal); J18.9 Pneumonia, unspecified organism; J96.01 Acute respiratory failure with hypoxia; J45.31 Mild persistent asthma with (acute) exacerbation; G43.909 Migraine, unspecified, not intractable, without status migrainosus; F32.A Depression, unspecified; F41.9 Anxiety disorder, unspecified; K21.9 Gastro-esophageal reflux disease without esophagitis; K44.9 Diaphragmatic hernia without obstruction or gangrene; D64.9 Anemia, unspecified; E55.9 Vitamin D deficiency, unspecified; R73.03 Prediabetes; E87.5 Hyperkalemia; D75.839 Thrombocytosis, unspecified; E78.5 Hyperlipidemia, unspecified; I10 Essential (primary) hypertension; Z20.822 Contact with and (suspected) exposure to COVID-19; Z79.899 Other long term (current) drug therapy; Z88.8 Allergy status to other drugs, medicaments and biological substances
CPT/HCPCS: 71046; 71250; 80048; 80053; 85025; 85027; 86803; 87040; 87449; 87502; 87811; 87899; 94640; 96374; 99284

== ENCOUNTER → 2024-06-01 12:03 | Outpatient (REF) | payer OTHER, SELFPAY | LOC: RAD 12:03 | PROVIDERS: ATTENDING PHYSICIAN Nurse Practitioner Adult Health; FAMILY PHYSICIAN Family Medicine | DX: J18.9 Pneumonia, unspecified organism (principal) | CPT/HCPCS: 71046 ==

== ENCOUNTER 2024-10-09 06:23 | Day surgery (SDC) | payer OTHER, SELFPAY | END 2024-10-09 14:55 | disposition home or self-care (01) | LOC: GI 06:23 | PROVIDERS: ATTENDING PHYSICIAN Internal Medicine Gastroenterology | DX: Z12.11 Encounter for screening for malignant neoplasm of colon (principal); Q43.8 Other specified congenital malformations of intestine; K44.9 Diaphragmatic hernia without obstruction or gangrene; Q39.9 Congenital malformation of esophagus, unspecified; K22.89 Other specified disease of esophagus; K31.89 Other diseases of stomach and duodenum; D12.3 Benign neoplasm of transverse colon; K63.5 Polyp of colon; K21.00 Gastro-esophageal reflux disease with esophagitis, without bleeding; Z86.0100 Personal history of colon polyps, unspecified | CPT/HCPCS: 45385; 43239; 88305; 88342 ==